=== PATIENT | female | born 1960 | race Caucasian/White ===

== ENCOUNTER 2018-05-05 07:21 | Day surgery (SDC) | payer MEDICARE ==
[~2018-05-05] VITALS: Ht 154.9 cm; Wt 85.3 kg
[~2018-05-05 07:21] MED LIST: ABILIFY 5MG; ACET500 PO; ACYC400 PO; ALBU8HFA2 INH; ALBU90OI INH; ALEN10 PO; ASPI325 PO; ASPI81CH PO; BECL80OI INH; CHOL10002 PO; CRANBERRY PLUS1 EAC1 PO; CYAN1000I PO; CYCL10 PO; DULO60 PO; FISH1000 PO; FLUSAL2505 INH; Fish Oil300 MG PO; HYDR1TAB94 PO; LISHYD2025 PO; MELO7.5 PO; METO25ER PO; MIRT15 PO; MULTIVITS; OLEPTRO ER300 MG PO; OMEP20ER PO; OXYACE5T PO; OXYB5 PO; PARO25 PO; PRAV20 PO; QUET25 PO; SERT100 PO; TIOT18 INH; TRAZ100 PO; VARE1 PO
[2018-05-05] MEDS ORDERED: ACET500 (07:53)
[2018-05-05] MEDS ORDERED: HYDCHL25 PO (07:54)
[2018-05-05] MEDS ORDERED: NYSTRITC TOP (07:54)
[2018-05-05] MEDS ORDERED: GABA100 PO (07:56)
[2018-05-05] MEDS ORDERED: TRAM50 PO (07:56)
== END 2018-05-05 10:53 | disposition home or self-care (01) ==
LOC: ORSCSDS 07:21
PROVIDERS: Orthopaedic Surgery
PROC: 01N50ZZ Release Median Nerve, Open Approach (ICD-10-PCS; principal; 2018-05-05 08:45)
DX: G56.02 Carpal tunnel syndrome, left upper limb (principal); G47.33 Obstructive sleep apnea (adult) (pediatric); E78.5 Hyperlipidemia, unspecified; J44.9 Chronic obstructive pulmonary disease, unspecified; I10 Essential (primary) hypertension; Z87.891 Personal history of nicotine dependence; E66.9 Obesity, unspecified; Z68.35 Body mass index [BMI] 35.0-35.9, adult; Z79.899 Other long term (current) drug therapy
CPT/HCPCS: J0690; J2250; J2405; J7120

== ENCOUNTER → 2018-10-26 | Outpatient (CLI) | payer MEDICARE, OTHER ==
[~2018-10-26] MED LIST changes: +ACET500; +GABA100 PO; +HYDCHL25 PO; +NYSTRITC TOP; +TRAM50 PO
[2018-10-26 14:48] LABS: Anion Gap 8 mmol/L (6-16); Blood Urea Nitrogen 13 mg/dL (8-24); Bun/Creatinine Ratio 18.5 (12.0-20.0); CO2, Blood 27 mmol/L (21-32); Calcium, Blood 9.3 mg/dL (8.5-10.1); Chloride, Blood 108 mmol/L (98-108); Glomerular Filtration Rate >60 (60-); Glucose, Blood 93 mg/dL (70-99); Sodium, Blood 143 mmol/L (136-145)
== END | disposition home or self-care (01) ==
LOC: LAB 14:04 → LAB SHORT 14:04
PROVIDERS: Physician Assistant
DX: I10 Essential (primary) hypertension (principal)
CPT/HCPCS: 80048

== ENCOUNTER 2019-07-17 06:36 | Day surgery (SDC) | payer MEDICARE, OTHER ==
[~2019-07-17] VITALS: Ht 154.9 cm; Wt 88.0 kg
[~2019-07-17 06:36] MED LIST changes: -ACET500; +LISI20 PO
--- NOTE | 2019-07-17 07:09 | NUR ---
History, Chart, Medications and Allergies reviewed before start of procedure. Patient confirms NPO status and agrees with scheduled surgery. Lungs clear T/O to Auscultation, AFTER CLEARING WITH COUGH. Patient States Post-Procedure ride home has been arranged. Patient states colon prep results clear. Pre-Op teaching done. Pt verbalizes understanding.
[2019-07-17] MEDS ORDERED: ATOR40TA PO (07:19)
--- NOTE | 2019-07-17 08:05 | NUR ---
07/17/19 0805 Niru Tavarez History, Chart, Medications and Allergies reviewed before start of procedure. Patient confirms NPO status and agrees with scheduled surgery. PATIENT DETERMINED TO BE ASA APPROPRIATE FOR PROPOFOL SEDATION PRIOR TO START OF PROCEDURE BY DR. ANDREW. 3-LEAD EKG REVIEWED WITH PHYSICIAN PRIOR TO START OF PROCEDURE. MONITOR INTACT WITH CONTINUOUS PULSE OXIMETRY AND INTERMITTENT BP. HURRICAINE SPRAY TO BACK OF THROAT.
== END 2019-07-17 09:23 | disposition home or self-care (01) ==
LOC: ORSCMMR 06:36 → ORD 08:00 → ORSCMMR 08:00
PROVIDERS: Internal Medicine Gastroenterology
PROC: 0DBP8ZX Excision of Rectum, Via Natural or Artificial Opening Endoscopic, Diagnostic (ICD-10-PCS; principal; 2019-07-17 08:00)
PROC: 0DBN8ZX Excision of Sigmoid Colon, Via Natural or Artificial Opening Endoscopic, Diagnostic (ICD-10-PCS; principal; 2019-07-17 08:00)
PROC: 0DB68ZX Excision of Stomach, Via Natural or Artificial Opening Endoscopic, Diagnostic (ICD-10-PCS; principal; 2019-07-17 08:00)
DX: K29.00 Acute gastritis without bleeding (principal); B96.81 Helicobacter pylori [H. pylori] as the cause of diseases classified elsewhere; K21.9 Gastro-esophageal reflux disease without esophagitis; K44.9 Diaphragmatic hernia without obstruction or gangrene; K63.5 Polyp of colon; K62.1 Rectal polyp; K64.4 Residual hemorrhoidal skin tags; Z12.11 Encounter for screening for malignant neoplasm of colon; Z86.010 Personal history of colon polyps; I10 Essential (primary) hypertension; Z79.899 Other long term (current) drug therapy; F17.210 Nicotine dependence, cigarettes, uncomplicated
CPT/HCPCS: 88305; 88342; J2704; J7120